=== PATIENT | male | born 2000 | race Caucasian/White ===

== ENCOUNTER 2021-03-31 17:21 | Emergency (ER) | payer MEDICAID ==
[~2021-03-31] VITALS: Ht 170.2 cm; Wt 72.6 kg
[2021-03-31 17:25] VITALS: BP_SYST 131
[2021-03-31 18:18] LABS: BILIRUBIN,URINE NEGATIVE (NEGATIVE); CLARITY/URINE CLEAR (CLEAR); COLOR,URINE YELLOW (YELLOW); GLUCOSE,URINE NEGATIVE (NEGATIVE); KETONES,URINE NEGATIVE (NEGATIVE); LEUKOCYTE ESTERASE ,URINE NEGATIVE (NEGATIVE); NITRITE, URINE NEGATIVE (NEGATIVE); PROTEIN URINE NEGATIVE (NEGATIVE); UROBILINOGEN,URINE 0.2 (0.2-1.0)
[2021-03-31 18:20] LABS: BLOOD, URINE TRACE (NEGATIVE)
[2021-03-31 18:32] LABS: BASOPHILS % (AUTO) 0.3 % (0.0-2.0); EOSINOPHILS # (AUTO) 0.1 K/uL (0.0-0.4); EOSINOPHILS % (AUTO) 1.5 % (0.0-4.0); HEMATOCRIT 42.5 % (36-54); HEMOGLOBIN 14.8 g/dL (14.0-18.0); LYMPHOCYTES # (AUTO) 1.8 K/uL (1.0-5.5); MEAN CORPUSCULAR HEMOGLOBIN 30 pg (27-31); MEAN CORPUSCULAR HGB CONC 35 % (32-36); MEAN CORPUSCULAR VOLUME 86 fL (79.0-98.0); MONOCYTES # (AUTO) 0.6 K/uL (0.0-1.0); MONOCYTES % (AUTO) 7.2 % (1.7-9.3); NEUTROPHILS # (AUTO) 5.2 K/uL (1.8-7.7); PLATELET COUNT (AUTO) 201 K/uL (130-430); RED BLOOD CELL COUNT(AUTO) 4.97 MIL/uL (4.2-6.2); RED CELL DISTRIBUTION WIDTH 12.8 % (9.0-15.0); WHITE BLOOD COUNT (AUTO) 7.7 K/uL (4.5-11.0)
[2021-03-31 18:35] LABS: CALCIUM 9.3 mg/dL (8.4-11.0); CREATININE 0.84 mg/dL (0.55-1.30)
[2021-03-31 18:41] LABS: ALBUMIN 4.5 g/dL (3.4-4.8); TOTAL BILIRUBIN 0.3 mg/dL (0.0-1.0)
[2021-03-31 18:53] LABS: PROTHROMBIN TIME 10.3 SECS (9.5-12.5)
[2021-03-31] MEDS ORDERED: DOCU-144 PO (19:38)
[2021-03-31] MEDS ORDERED: MAGN296S30 PO (19:38)
[2021-03-31] MEDS ORDERED: MAGNESIUM CITRATE 300 ML ORAL SOLUTION PO ONE (19:45)
[2021-03-31 19:50] VITALS: BP_SYST 131
== END 2021-03-31 17:45 | disposition home or self-care (01) ==
LOC: SED 17:21
DX: K59.00 Constipation, unspecified (principal)
CPT/HCPCS: 36415; 76376; 80053; 81003; 82150; 83605; 83690; 85025; 85610-TC; 85730-TC; 99284

== ENCOUNTER 2021-09-22 22:11 | Emergency (ER) | payer MEDICAID ==
[~2021-09-22] VITALS: Ht 160 cm; Wt 68.0 kg
[2021-09-22 22:11] VITALS: BP_SYST 127
[~2021-09-22 22:11] MED LIST: DOCU-144 PO; MAGN296S30 PO
--- NOTE | 2021-09-22 23:30 | NUR ---
Patient called, no answer. Patient left without being seen. No further treatment provided. ER MD aware
== END 2021-09-22 23:30 | disposition left against medical advice (07) ==
LOC: SED 22:11
DX: R07.89 Other chest pain (principal); Z53.21 Procedure and treatment not carried out due to patient leaving prior to being seen by health care provider
CPT/HCPCS: 93005